=== PATIENT | female | born 2000 | race Caucasian/White ===

== ENCOUNTER 2022-07-27 05:35 | Inpatient (IN) | payer OTHER ==
[2022-07-26 11:27] LABS: Hemoglobin 12.4 g/dL (12.0-15.5); Platelet Count 182 10x3/uL (150-450); SARS-CoV-2 NAA Rapid Test Not Detected (NotDetected)
[2022-07-26 11:54] LABS: Syphilis Antibody Nonreactive (Nonreactive); Syphilis Antibody Index 0.03 S/CO (<1.00 Non-Reactive)
[2022-07-26 11:56] LABS: HBSAg Index 0.11 S/CO (0-0.99); Hep B Surf Ag Non-Reactive S/CO (NonReactive)
[2022-07-27] MEDS ORDERED: Methylergonovine 0.2 MG/ML VIAL IM PRN (06:05)
[2022-07-27] MEDS ORDERED: Promethazine HCl 25 MG/ML VIAL IM PRN ×3 (06:05→11:18)
[2022-07-27] MEDS ORDERED: Carboprost 250 MCG/ML AMP IM PRN (06:05)
[2022-07-27] MEDS ORDERED: NS w/ Oxytocin 30 units 500 ML IV SCH ×2 (06:05→11:18)
[2022-07-27] MEDS ORDERED: Misoprostol 200 MCG TAB PR PRN (06:05)
[2022-07-27] MEDS ORDERED: Famotidine/PF 20 mg/2ml Vial SLOW IVP PRN (06:05)
[2022-07-27] MEDS ORDERED: Lactated Ringer's 1,000 ML IV SCH (06:05)
[2022-07-27] MEDS ORDERED: hydrALAZINE 20 MG/ML VIAL SLOW IVP PRN ×2 (06:05→11:18)
[2022-07-27] MEDS ORDERED: Bicitra 30 ML UDCUP PO PRN (06:05)
[2022-07-27] MEDS ORDERED: Tranexamic Acid 1,000 MG in Sodium Chloride 0.9% 250 ML 250 ML IVPB PRN (06:05)
[2022-07-27] MEDS ORDERED: Ondansetron PF 4 MG/2 ML Vial IVP PRN ×3 (06:05→11:18)
[2022-07-27] MEDS ORDERED: Diphenoxylate HCl/Atropine Tablet PO PRN ×2 (06:05→18:15)
[2022-07-27] MEDS ORDERED: CEFAZOLIN 2 GM in Sodium Chloride 0.9% 100 ML IVPB SCH (06:05)
[2022-07-27] MEDS ORDERED: diphenhydrAMINE 50 MG/ML VIAL IVP PRN (06:11)
[2022-07-27] MEDS ORDERED: Ketorolac Tromethamine 30 MG/ML VIAL IVP PRN (06:11)
[2022-07-27] MEDS ORDERED: Ondansetron HCl/PF 4 MG/2 ML Vial IVP PRN (06:11)
[2022-07-27] MEDS ORDERED: Fentanyl 100 MCG/2 ML VIAL SLOW IVP PRN (06:11)
[2022-07-27] MEDS ORDERED: HYDROmorphone 2 MG/ML VIAL SLOW IVP PRN (06:11)
[2022-07-27] MEDS ORDERED: Naloxone HCl 0.4 mg/ml Vial IVP PRN ×2 (06:11)
[2022-07-27] MEDS ORDERED: Meperidine HCl/PF 25 MG/ML VIAL SLOW IVP PRN (06:11)
[2022-07-27] MEDS ORDERED: Promethazine HCl 25 MG SUPP PR PRN (06:11)
[2022-07-27] MEDS ORDERED: Moisturizing Cream (Eucerin) 113 GM JAR TOP PRN (06:11)
[2022-07-27] MEDS ORDERED: Naloxone HCl 0.4 mg/ml Vial IV PRN (06:11)
[2022-07-27] MEDS ORDERED: Communication Order-Pharmacy FS SCH (06:15)
[2022-07-27] MEDS ORDERED: Ketorolac Tromethamine 30 MG/ML VIAL IVP SCH ×2 (06:15→15:00)
[2022-07-27 06:27] VITALS: BMI 33.3
[2022-07-27] MEDS ORDERED: Oxytocin 10 UNITS/ML VIAL ONE (06:28)
[2022-07-27] MEDS ORDERED: Dexamethasone 4 mg/ml Vial ONE (06:28)
[2022-07-27] MEDS ORDERED: Ondansetron PF 4 MG/2 ML Vial ONE (06:28)
[2022-07-27] MEDS ORDERED: Fentanyl 100 MCG/2 ML VIAL ONE (06:28)
[2022-07-27] MEDS ORDERED: Morphine PF 10 MG/10 ML VIAL ONE (06:28)
[2022-07-27] MEDS ORDERED: Phenylephrine 10 MG/ML VIAL ONE (06:28)
[2022-07-27] MEDS ORDERED: HYDROcodone/Acetaminophen 5/325 mg Tablet PO PRN (11:18)
[2022-07-27] MEDS ORDERED: Bisacodyl 10 MG SUPP PR PRN (11:18)
[2022-07-27] MEDS ORDERED: Lanolin Ointment 7 GM TUBE TOP PRN (11:18)
[2022-07-27] MEDS ORDERED: Boostrix 0.5 ML (Tdap) VIAL (>/=7 yrs of age) IM ONE (11:18)
[2022-07-27] MEDS ORDERED: Simethicone Chewable 80 MG TAB PO PRN (11:18)
[2022-07-27] MEDS ORDERED: Meperidine HCl/PF 25 MG/ML VIAL IM PRN (11:18)
[2022-07-27] MEDS ORDERED: diphenhydrAMINE 25 MG CAP PO PRN (11:18)
[2022-07-27] MEDS ORDERED: Prenatal Vitamin 1 TAB PO SCH (11:30)
[2022-07-27] MEDS ORDERED: Ferrous Sulfate 325 MG TAB PO SCH (11:30)
[2022-07-27] MEDS ORDERED: Docusate 100 MG CAP PO SCH (11:30)
[2022-07-27] MEDS ORDERED: Ketorolac Tromethamine 30 MG/ML VIAL ONE (12:11)
[2022-07-27] MEDS: Docusate 100 MG CAP PO SCH (21:52)
[2022-07-27] MEDS: Ibuprofen 800 MG TAB PO SCH (21:52)
[2022-07-27] MEDS: Ferrous Sulfate 325 MG TAB PO SCH (21:53)
[2022-07-28 04:14] LABS: Hemoglobin 9.2 g/dL (12.0-15.5); Mean Corpuscular HGB CONC 33.2 g/dL (32.0-36.0); Mean Corpuscular Volume 90.2 fl (81.6-98.3); Mean Platelet Volume 10.9 fl (7.4-10.4); Platelet Count 171 10x3/uL (150-450); RBC Distribution Width 13.2 % (11.5-14.5); Red Blood Cell (RBC) Count 3.07 10x6/uL (3.90-5.03); White Blood Cell (WBC) Count 14.3 10x3/uL (3.5-10.5)
[2022-07-28] MEDS: Ibuprofen 800 MG TAB PO SCH ×3 (05:31→21:37)
[2022-07-28] MEDS: Docusate 100 MG CAP PO SCH ×2 (08:18→21:37)
[2022-07-28] MEDS: Ferrous Sulfate 325 MG TAB PO SCH ×2 (08:18→21:37)
[2022-07-28] MEDS: Prenatal Vitamin 1 TAB PO SCH (08:18)
[2022-07-29] MEDS: Ibuprofen 800 MG TAB PO SCH ×2 (05:38→13:46)
[2022-07-29] MEDS: HYDROcodone/Acetaminophen 5/325 mg Tablet PO PRN ×2 (05:41→13:46)
[2022-07-29 08:12] VITALS: TEMP 98.1
[2022-07-29] MEDS: Ferrous Sulfate 325 MG TAB PO SCH (08:52)
[2022-07-29] MEDS: Prenatal Vitamin 1 TAB PO SCH (08:52)
[2022-07-29] MEDS: Docusate 100 MG CAP PO SCH (08:53)
[2022-07-29 11:37] VITALS: BP 121/68
== END 2022-07-29 17:20 | disposition home or self-care (01) | DRG 788 ==
LOC: CSHLD 05:35 → CSHPP 10:48
PROVIDERS: ADMIT Family Medicine; ATTEND Family Medicine
PROC: 10D00Z1 Extraction of Products of Conception, Low, Open Approach (ICD-10-PCS; principal; 2022-07-27)
PROC: 3E0P05Z Introduction of Adhesion Barrier into Female Reproductive, Open Approach (ICD-10-PCS; 2022-07-27)
DX: O34.211 Maternal care for low transverse scar from previous cesarean delivery (principal); Z20.822 Contact with and (suspected) exposure to COVID-19; O99.824 Streptococcus B carrier state complicating childbirth; Z37.0 Single live birth; Z3A.39 39 weeks gestation of pregnancy; Z79.899 Other long term (current) drug therapy
CPT/HCPCS: 36415; 51702; 85014; 85018; 85027; 85049; 86780; 86850; 86900; 86901; 87340; J1100; J1885; J2274; J2370; J2405; J2590; J3010; U0002